=== PATIENT | male | born 1980 ===

== ENCOUNTER → 2019-01-27 20:16 | Outpatient (REF) | payer OTHER, SELFPAY ==
[2019-01-27 20:58] LABS: Erythrocyte Sedimentation Rate 3 MM/HR (0-15)
== END ==
LOC: LAB 20:16
PROVIDERS: Visit Provider Neurological Surgery
DX: M51.16 Intervertebral disc disorders with radiculopathy, lumbar region (principal); S39.012A Strain of muscle, fascia and tendon of lower back, initial encounter
CPT/HCPCS: 85651